=== PATIENT | female | born 1980 | race Caucasian/White ===

== ENCOUNTER → 2016-05-07 | Outpatient (CLI) | payer OTHER | LOC: BHSO 12:55 | DX: F90.0 Attention-deficit hyperactivity disorder, predominantly inattentive type (principal) ==

== ENCOUNTER → 2016-12-18 | Outpatient (CLI) | payer MEDICAID | LOC: BHSO 14:32 | DX: F90.0 Attention-deficit hyperactivity disorder, predominantly inattentive type (principal) ==